=== PATIENT | female | born 1940 | race Caucasian/White ===

== ENCOUNTER 2016-10-19 18:54 | Inpatient (IN) | payer OTHER ==
[~2016-10-19] VITALS: Ht 160 cm; Wt 56.7 kg
[2016-10-19 19:04] VITALS: BP 141/57
--- NOTE | 2016-10-19 20:15 | NUR ---
PATIENT TO ER BED 8
--- NOTE | 2016-10-19 20:18 | NUR ---
PT IS 76/F BIB CARE PROVIDER ROSANNE TO ED WITH C/O PT WITH N/V/ WATERY STOOLS X TODAY. MULTIMEDIA ARTIST STATES MED HX MR, DEMENTIA. SKIN IS PINK/WARM/DRY; AAOX4 WITH EVEN AND STEADY GAIT; LUNGS CLEAR BL; HR EVEN AND REGULAR; PT DENIES ANY FEVER, CP, SOB, OR COUGH AT THIS TIME; PATIENT STATES PAIN OF 0/10 AT THIS TIME; VSS; PATIENT POSITIONED FOR COMFORT; HOB ELEVATED; BEDRAILS UP X2; BED DOWN. ER MD MADE AWARE OF PT STATUS.
[2016-10-19] MEDS ORDERED: NACL 0.9% 1,000 ML IV ONE (20:25)
[2016-10-19] MEDS ORDERED: LEVOFLOXACIN 500 MG/D5W PREMIX 100 ML IV ONE (20:25)
--- NOTE | 2016-10-19 20:27 | NUR ---
DR PABLO AT BEDSIDE
--- NOTE | 2016-10-19 21:10 | NUR ---
PT TAKEN OFF UNIT TO TO HAVE CT DONE VIA GURNEY. PT IV MEDS PAUSED AT THIS TIME.
--- NOTE | 2016-10-19 21:28 | NUR ---
PT BACK ON UNIT FROM CT SCAN PT PLACED BACK ON MONITOR. IV MEDS RESUMED
--- NOTE | 2016-10-20 00:05 | NUR ---
PT RESTING IN BED. NO SOB NOTED. WILL CONTINUE TO CLOSELY MONITOR.
[2016-10-20] MEDS ORDERED: DOCUSATE SODIUM 100 MG GELCAP PO PRN (01:20)
[2016-10-20] MEDS ORDERED: ACETAMINOPHEN 325 MG TAB PO PRN (01:20)
[2016-10-20] MEDS ORDERED: MORPHINE SULFATE 2 MG/ML SYR IVP PRN (01:20)
[2016-10-20] MEDS ORDERED: ONDANSETRON 4 MG/2 ML VIAL IVP PRN (01:20)
--- NOTE | 2016-10-20 01:46 | NUR ---
Patient will be admitted to care of DR PAGE. Admited to TELE. Will go to room 108B. Belongings list completed. Report to CIRILO ARCHULETA.
--- NOTE | 2016-10-20 01:55 | NUR ---
Admitted from , with chief complaint of ABDOMINAL PAIN ASSOCIATED WITH NAUSEA, VOMITING & DIARRHEA WITH GENERALIZED WEAKNESS. A 76 y/o, Female. ALERT AWAKE ORIENTED X2 WITH PERIOD OF CONFUSION. INITIAL ASSESSMENT DONE. NO S/S OF RESPIRATORY DISTRESS OR SOB NOTED. NO C/O PAIN OR ANY DISCOMFORT AT THIS TIME. SKIN IS INTACT CLEAN DRY AND WARM TO TOUCH. PLAN OF CARE REVIEWED TO PT AND VERBALIZED UNDERSTANDING AND NEED TO BE REINFORCED. oriented to call light, bed, phone,television, bathroom, smoking policy, visiting hours, procedures, ID bracelet on. Belongings list checked. CALL LIGHT WITHIN REACH. WILL CONTINUE TO MONITOR.
[2016-10-20] MEDS: NACL 0.9% 1,000 ML IV SCH ×3 (02:15→22:03)
--- NOTE | 2016-10-20 02:30 | NUR ---
APPLY SEQUENTIAL COMPRESSION DEVICE TO PT AND TOLERATED WELL. WILL CONTINUE TO MONITOR.
[2016-10-20 04:00] VITALS: BP 125/55
[2016-10-20] MEDS: metroNIDAZOLE 500 MG/NS PREMIX 100 ML IV SCH ×3 (04:13→20:13)
--- NOTE | 2016-10-20 05:40 | NUR ---
AM CARE RENDERED. BED LINEN CHANGED. INSTRUCTED PT TO REPOSITION. KEPT CLEAN AND DRY. CALL LIGHT WITHIN REACH. WILL CONTINUE TO MONITOR.
--- NOTE | 2016-10-20 07:20 | NUR ---
PT HAS NO S/S OF ANY DISCOMFORT. PLAN OF CARE ENDORSED TO LANCE RN AT BEDSIDE FOR CONTINUITY OF CARE.
--- NOTE | 2016-10-20 07:30 | NUR ---
REPORT RECEIVED FROM RIB KNITTER, PT SITTING UP WITH LEGS TO SIDE OF BED, REPOSITIONED PT UP ON BED, RESP EVEN UNLABORED ON ROOM AIR IN NAD, PLAN OF CARE DISCUSSED, NO IMMEDIATE NEEDS NOTED AT THIS TIME, CALL CAMPBELL WITHIN REACH, SIDE RAILS UP X2, BED ALARM ON, WILL CONTINUE TO MONITOR.
[2016-10-20 08:00] VITALS: BP_SYST 135; BP_DIAS 65; BP_DIAS 69
--- NOTE | 2016-10-20 08:23 | NUR ---
PATIENT HAS BEEN SCREENED AND CATEGORIZED MODERATE NUTRITION RISK. PATIENT WILL BE SEEN WITHIN 3-5 DAYS OF ADMISSION. 10/22/16-10/24/[address]
[2016-10-20] MEDS ORDERED: LACTOBACILLUS RHAMNOSUS GG 1 EACH CAP PO SCH (09:00)
--- NOTE | 2016-10-20 09:45 | NUR ---
PT UP OUT OF BED WITH ASSIST AMBULATES SLOWLY WITH ASSIST TO BATHROOM, PT AUGUSTO WELL. HEAD NURSE MELINDA CALLED PER PT'S REQUEST, PT WITHOUT VOMITING/NAUSEA OR DIARRHEA AT THIS TIME, WILL CONTINUE TO MONITOR
--- NOTE | 2016-10-20 10:12 | NUR ---
PT ASSISTED TO BATHROOM, VOID WITHOUT PROBLEM, RETURNED TO BED, BED ALARM ON, SIDE RAILS UP, BED LOCKED IN LOW POSITION, IVF INFUSING WELL SITE CLEAR, CALL CAMPBELL WITHIN REACH, REINFORCED THE NEED TO CALL NURSE BEFORE GETTING UP, WILL CONTINUE TO MONITOR.
[2016-10-20 12:00] VITALS: BP 135/65
--- NOTE | 2016-10-20 12:40 | NUR ---
US BEING DONE AT BEDSIDE AT THIS TIME.
[2016-10-20] MEDS: LORazepam 2 MG/ML VIAL IVP PRN (15:01)
--- NOTE | 2016-10-20 15:01 | NUR ---
PT AGGITATED, GETTING OUT OF BED ATTEMPTING TO WALK OUT OF ROOM, ATTEMPTING TO PULL IV OUT, DOES NOT FOLLOW INSTRUCTIONS, DR Siddiqui MADE AWARE, ATIVAN GIVEN PER ORDER AT THIS TIME. BED LOCKED IN LOW POSITION, SIDE RAILS UP, CALL CAMPBELL WITHIN REACH, WILL CONTINUE TO MONITOR.
[2016-10-20 16:00] VITALS: BP 130/51
--- NOTE | 2016-10-20 16:00 | NUR ---
HOUSE CALLS NURSE MELINDA TO BEDSIDE, PT RESTING QUIETLY WITH EYES OPEN, RESP EVEN UNLABORED, IVF INFUSING WELL, SITE CLEAR, CALL CAMPBELL WITHIN REACH, SIDE RAILS UP, BED LOCKED IN LOW POSITION, WILL CONTINUE TO MONITOR.
--- NOTE | 2016-10-20 18:11 | NUR ---
PT SLEEPING WITH EYES CLOSED, RESP EVEN UNLABORED ON ROOM AIR IN NAD, SKIN WARM DRY COLOR WNL, IVF INFUSING WELL SITE CLEAR, PT REMAINS ON PARK ATTENDANT, CALL CAMPBELL WITHIN REACH, BED LOCKED IN LOW POSITION, SIDE RAIL UP, BED ALARM ON, WILL CONTINUE TO MONITOR, DR ALBERT MADE AWARE OF US RESULT.
--- NOTE | 2016-10-20 19:20 | NUR ---
RECEIVED PT IN STABLE CONDITION. SLEEPING WITH NO DISTRESS NOTED. EASILY AROUSE WHEN NAME CALLED. ON TELE MONITOR. BEDREST BUT CAN BE UP WITH ASSISTANCE. SKIN INTACT. WITH IVF INFUSING WELL ONT HE LT FA#20. CLEAR AND PATENT. BED ON LOW POSITION, SIDE RAILS UP X2. HAS BLE SCD MACHINE ON. FREQUENT ROUNDS NEEDED. CALL LIGHT PLACED WITHIN EASY REACH. WILL CONTINUE TO MONITOR.
--- NOTE | 2016-10-20 19:20 | NUR ---
REPORT GIVEN TO MAT INSPECTOR, PT IN STABLE CONDITION.
[2016-10-20 20:00] VITALS: BP 150/73
[2016-10-20] MEDS: risperiDONE 1 MG TAB PO SCH (20:14)
[2016-10-20] MEDS: CALCIUM CARB/VIT-D 500 MG/200 IU 1 TAB PO SCH (20:14)
--- NOTE | 2016-10-20 20:45 | NUR ---
ASSISTED UP TO THE BATHROOM. VOIDED. PT HAS UNSTEADY GAIT. PUT BACK TO BED AND REPOSITIONED FOR COMFORT.
[2016-10-20] MEDS ORDERED: carBAMazepine 200 MG TAB PO SCH (21:00)
[2016-10-20] MEDS ORDERED: OXYBUTYNIN 5 MG TAB PO SCH (21:00)
[2016-10-20] MEDS ORDERED: traZODone 50 MG TAB PO SCH (21:00)
[2016-10-20] MEDS ORDERED: LEVOFLOXACIN 500 MG/D5W PREMIX 100 ML IV SCH (21:00)
--- NOTE | 2016-10-20 22:00 | NUR ---
SLEEPING WELL AT THIS TIME. NO S/S OF ANY DISCOMFORT NOR PAIN NOTED. BED ON LOW POSITION. BED ALARM ON. WILL CONTINUE TO MONITOR.
[2016-10-21] VITALS (7 sets, daily range): BP systolic 132–151; BP diastolic 59–78
[2016-10-21] MEDS: LORazepam 2 MG/ML VIAL IVP PRN ×2 (00:26→14:22)
--- NOTE | 2016-10-21 00:26 | NUR ---
ASSISTED UP TO BATHROOM. VOIDED . VERY UNSTEADY. BACK TO BED BUT STARTED TO BE VERY AGITATED . TRYING TO GET OUT OF BED. MEDICATED WITH ATIVAN IV ORDERED. WILL CONTINUE TO MONITOR.
--- NOTE | 2016-10-21 02:00 | NUR ---
SLEEPING WELL AT THIS TIME. NO S/S OF ANY DISTRESS NOR DISCOMFORT NOTED.
[2016-10-21] MEDS: metroNIDAZOLE 500 MG/NS PREMIX 100 ML IV SCH ×2 (04:57→12:57)
--- NOTE | 2016-10-21 05:45 | NUR ---
ASSISTED UP TO THE BATHROOM AGAIN THIS AM. ABLE TO VOID.
--- NOTE | 2016-10-21 06:15 | NUR ---
BLOOD WAS DRAWN THIS AM. WILL FOLLOW UP RESULTS.
--- NOTE | 2016-10-21 07:10 | NUR ---
ENDORSED PT IN STABLE CONDITION TO AM NURSE FOR CONTINUITY OF CARE.
[2016-10-21] MEDS: NACL 0.9% 1,000 ML IV SCH (07:25)
--- NOTE | 2016-10-21 07:25 | NUR ---
REPORT RECIEVED FROM MASH FILTER CLOTH CHANGER, PT SLEEPING QUIETLY, RESP EVEN UNLABORED ON RA IN NAD, AROUSES EASILY BY VOICE, PLAN OF CARE DISCUSSED, PT DENIES PAIN OR OTHER CONCERNS, CALL CAMPBELL WITHIN REACH, SIDE RAILS UP, BED LOCKED IN LOW POSITION, WILL CONTINUE TO MONITOR.
[2016-10-21] MEDS: CALCIUM CARB/VIT-D 500 MG/200 IU 1 TAB PO SCH (08:11)
[2016-10-21] MEDS: risperiDONE 1 MG TAB PO SCH (08:11)
--- NOTE | 2016-10-21 08:30 | NUR ---
PT SITTING UP IN BED EATING BREAKFAST WITHOUT ASSIST, PT AUGUSTO SCHEDULED MORNING MEDS WELL, PT DENIES NAUSEA, DENIES ABD PAIN, PT CALM AND COOPERATIVE, IVF INFUSING WELL, SITE CLEAR, PT REMAINS ON PASTING MACHINE OFFBEARER, CALL CAMPBELL AT BEDSIDE, BED LOCKED IN LOW POSITION, SIDE RAILS UP, BED ALARM ON, WILL CONTINUE TO MONITOR.
[2016-10-21] MEDS ORDERED: RALOXIFENE 60 MG TAB PO SCH (09:00)
[2016-10-21] MEDS ORDERED: LACTOBACILLUS RHAMNOSUS GG 1 EACH CAP PO SCH (09:00)
[2016-10-21] MEDS ORDERED: VITAMIN B COMPLEX W/C 1 TAB PO SCH (09:00)
--- NOTE | 2016-10-21 10:22 | NUR ---
PT UP OUT OF BED WITH ASSIST TO BATHROOM, CLEAR URINE NOTED, PT BACK TO BED, IVF INFUSING WELL, SITE CLEAR, PT DENIES N/V OR ABD PAIN, BED ALARM ON, SIDE RAILS UP, CALL CAMPBELL WITHIN REACH, WILL CONTIUE TO MONITOR.
[2016-10-21] MEDS ORDERED: POTASSIUM CHLORIDE 10 MEQ TABER PO SCH (11:00)
[2016-10-21] MEDS: SODIUM PHOS / POTASSIUM PHOS 1 PKT PDR PO SCH ×2 (11:28→17:55)
--- NOTE | 2016-10-21 13:16 | NUR ---
PT AUGUSTO SOME OF LUNCH APPROX 25%, DENIES N/V, PT UP OUT OF BED TO BATHROOM WITH ASSIST, SLIGHTLY UNSTEADY, PT BACK TO BED, SCHEDULED FLAGYL INFUSING, SITE CLEAR, BED ALARM ON, CALL CAMPBELL WITHIN REACH, BED LOCKED IN LOW POSITION, WILL CONTINUE TO MONITOR.
--- NOTE | 2016-10-21 14:28 | NUR ---
PT SITTING UP AT SIDE OF BED, ATTEMPTING TO GET UP ON HER OWN, STATES " TAKE ME OUTSIDE!" PT SLIGHTLY AGITATED, DOES NOT FOLLOW COMMANDS, ATTEMPTING TO PULL IV TUBING, PT PLACED BACK IN BED, BP 160/66, PRN ATIVAN GIVEN AT THIS TIME, BED ALARM ON, CALL CAMPBELL WITHIN REACH, SIDE RAILS UP, WILL CONTINUE TO MONITOR.
--- NOTE | 2016-10-21 15:23 | NUR ---
PT NOW RESTING QUIETLY IN BED WITH EYES OPEN, CALM IN NAD, IVF INFUSING WELL, CALL CAMPBELL WITHIN REACH, SIDE RAILS UP, BED LOCKED IN LOW POSITION, PT'S GEOLOGIC TECHNICIAN MELINDA ON THE PHONE TALKING WITH DR ALBERT, WILL CONTINUE TO MONITOR.
--- NOTE | 2016-10-21 18:10 | NUR ---
DISCHARGE INSTRUCTION GIVEN AND EXPLAINED TO PT'S YARD SPOTTER MELINDA NG, SHE VERBALIZED FULL UNDERSTANDING, IV DC'D CATH TIP INTACT, BLEEDING CONTROLLED, PT OUT OF BED WITH ASSIST TO WHEEL CHAIR, DC HOME NOW WITH MELINDA, TO LOVING HOME, ESCORTED OUT BY COMMERCIAL ART INSTRUCTOR.
--- NOTE | 2016-10-23 08:25 | NUR ---
RETRO ER REPORT, H&P AND MUSIC NOTES FAXED TO [facility] [phone] PHONE FIDELIA [phone]
--- NOTE | 2016-10-23 08:36 | NUR ---
RETRO REVIEW ER REPORT, H&P AND DISCHARGE SUMMARY FAXED TO [facility] [phone] PHONE FIDELIA [phone]
== END 2016-10-21 18:20 | disposition home or self-care (01) | DRG 392 ==
LOC: MED 18:54 → MTU 10-20 01:23
PROVIDERS: ADMIT Family Medicine; ATTEND Family Medicine
DX: A08.39 Other viral enteritis (principal); E86.0 Dehydration; F79 Unspecified intellectual disabilities; K80.20 Calculus of gallbladder without cholecystitis without obstruction; N94.89 Other specified conditions associated with female genital organs and menstrual cycle; E87.8 Other disorders of electrolyte and fluid balance, not elsewhere classified; E83.39 Other disorders of phosphorus metabolism; E83.51 Hypocalcemia; Z53.29 Procedure and treatment not carried out because of patient's decision for other reasons; Z87.81 Personal history of (healed) traumatic fracture